=== PATIENT | female | born 2000 | race Two or more races ===

== ENCOUNTER 2020-12-07 15:59 | Inpatient (IN) | payer MEDICAID ==
[~2020-12-07] VITALS: Ht 157.5 cm; Wt 74.9 kg
[2020-12-07] MEDS ORDERED: LORazepam 1 MG TABLET PO PRN (20:45)
[2020-12-07] MEDS ORDERED: HALOPERIDOL 5 MG TABLET PO PRN (20:45)
[2020-12-07] MEDS ORDERED: ZOLPIDEM TARTRATE 10 MG TABLET PO PRN (20:45)
[2020-12-07 22:32] VITALS: BP 128/76
[2020-12-08 05:53] VITALS: BP 109/63
[2020-12-08] MEDS ORDERED: MAGNESIUM HYDROXIDE SUSPENSION 30 ML UDCUP PO PRN (07:15)
[2020-12-08] MEDS ORDERED: ALBUTEROL SULFATE HFA 90 MCG/PUFF 8 GM INHALER IH PRN (07:15)
[2020-12-08] MEDS ORDERED: PETROLATUM,WHITE 28 GM JELLY TP PRN (07:15)
[2020-12-08] MEDS ORDERED: LOPERAMIDE HCL 2 MG CAPSULE PO PRN (07:15)
[2020-12-08] MEDS ORDERED: DOCUSATE SODIUM 100 MG CAPSULE PO PRN (07:15)
[2020-12-08] MEDS ORDERED: MAG HYDROX/AL HYDROX/SIMETH ES 30 ML SUSPENSION UDCUP PO PRN (07:15)
[2020-12-08] MEDS ORDERED: CloNIDine HCL 0.1 MG TABLET PO PRN (07:15)
[2020-12-08] MEDS ORDERED: GuaiFENesin/D-METHORPHAN [SUGAR-FREE] 200-20MG/10 ML SYRUP UDCUP PO PRN (07:15)
[2020-12-08] MEDS ORDERED: ONDANSETRON HCL 4 MG TABLET PO PRN (07:15)
[2020-12-08] MEDS ORDERED: ACETAMINOPHEN 325 MG TABLET PO PRN (07:15)
[2020-12-08] MEDS ORDERED: IBUPROFEN 400 MG TABLET PO PRN (07:15)
[2020-12-08] MEDS ORDERED: NICOTINE 14 MG/24 HOUR PATCH TD PRN (07:15)
[2020-12-08 08:41] VITALS: BP 121/70
[2020-12-08 16:19] VITALS: BP 134/62
[2020-12-09 04:51] VITALS: BP 118/66
[2020-12-09 08:26] VITALS: BP 105/61
[2020-12-09] MEDS ORDERED: SERTRALINE HCL 50 MG TABLET PO SCH (09:00)
[2020-12-09] MEDS ORDERED: FLUoxetine HCL 20 MG CAPSULE PO SCH (09:00)
[2020-12-09] MEDS ORDERED: FLUO-191 PO ×2 (12:55→12:58)
== END 2020-12-09 14:55 | disposition home or self-care (01) | DRG 751 ==
LOC: B2S 21:20
PROVIDERS: ADMIT Psychiatry & Neurology Child & Adolescent Psychiatry; ATTEND Psychiatry & Neurology Child & Adolescent Psychiatry
DX: F32.2 Major depressive disorder, single episode, severe without psychotic features (principal); T39.1X2A Poisoning by 4-Aminophenol derivatives, intentional self-harm, initial encounter; E66.9 Obesity, unspecified; G93.40 Encephalopathy, unspecified; Y92.89 Other specified places as the place of occurrence of the external cause
CPT/HCPCS: 87081; Z7610